=== PATIENT | male | born 1940 | race Caucasian/White ===

== ENCOUNTER 2020-05-31 23:42 | Inpatient (IN) | payer OTHER, SELFPAY ==
[2020-05-31 23:43] VITALS: BP 102/68; PULSE 114; RESP 16; TEMP 36.8; O2SAT 94
[2020-06-01] VITALS (30 sets, daily range): BP systolic 86–141; BP diastolic 61–84; PULSE 74–112; RESP 13–23; TEMP 36.7–37; O2SAT 97–100
[2020-06-01] MEDS: FAMOTIDINE 20 MG/50 ML BAG 100 MG IVPB (00:09)
[2020-06-01] MEDS: Ondansetron 4 MG/2 ML VIAL IVP (00:10)
--- NOTE | 2020-06-01 00:14 | ED.GENADUL_ITS ---
Discharge Plan Disposition Patient Disposition: [facility] INPATIENT Condition: Good Discharge Details Clinical Impression: Acute upper GI bleed Admit Date/Time: 06/01/20 02:24 Admit Provider: Aleksander Chan Attending Provider: Aleksander Chan Primary Care Provider: [facility] ED Provider: Karlos Hall Medical Decision Making 79-year-old male with a past medical history of lung cancer with metastases, receiving chemotherapy and radiation regularly through the [place], as well as having a history of A. fib, hypertension, prior lobectomies, aortic aneurysm, presents today for evaluation of vomiting blood. Patient states that for the last 2 to 3 months he has been vomiting very small amount of blood only in the morning, with no other issues however over the last day he has had a notable increase, today he has been spitting up notable amounts of large clots and bright red blood. Upon EMS arrival they noted a Saint with multiple clots in it. Aside from mild epigastric pain which the patient states is regular since his chemotherapy and radiation, he denies any chest pain, chest heaviness or tightness. He denies any shortness of breath. He is on 2 L of oxygen normally. Patient has no other complaints at this time. The patient's history shows that he was on Pradaxa, he denies being on it at this time. We are reaching out to the [facility] for record assessment. Physical exam demonstrates mild tachycardia, mild low blood pressure, will rehydrate, type and screen, start Protonix bolus and infusion, start famotidine, monitor closely and reassess. 12:23 AM I did contact family/Annie, discussed the case with her and it appears that he h as not been on Pradaxa for the last year. Blood pressure remains in the 90s, heart rate in the low 100s. 2:28 AM Laboratory work-up is returned, hemoglobin 12.8, which appears to be stable in comparison to his records from [facility]. Electrolytes stable, creatinine is higher than normal at 2.35, GFR is low. BUN 42, suspect there is a component of a reflection from an upper GI bleeding. I again discussed the scenario with the patient and he still does not feel that he had any significant shortness of breath, and he remains on his 1.5 to 2 L of home oxygen saturating at 99%. Symptoms appearing consistent with hemoptysis, and instead notably appear more consistent with upper GI etiology. The patient has had notable improvement of his symptoms while here, he is still spitting up small amounts of blood, more so minimal compared to before, no signs of respiratory distress whatsoever, vital signs have notably normalized, heart rate is now in the low 90s, blood pressure has improved to the low 110's. Patient feels much better. [facility] or [facility] available, they are not able to take him for transfer. I did contact the hospitalist and discussed the case with him/Dr. Chan, also discussed the case with Dr. Figueroa. At this time with the patient symptoms appear more consistent with an upper high GI bleed, in conjunction with his notable clinical stability at this time showing no signs of worsening, and instead showing notable improvement, does feel that the patient can be kept here this evening for GI scope in the morning with Dr. Figueroa. Dr. Chan will admit the patient. I did try to reach out to the patient's again Annie during the evening but because it is late she did not pick pulling machine operator. I have extensively reviewed the treatment plan with the patient. I have addressed all patient concerns at this time. I have also discussed the plan with the admitting physician and they agree with the current assessment and plan and have agreed to assume responsibility for the patient. All parties demonstrate verbal understanding and agreement with our assessment and plan at this time. FINDINGS: Tubes, catheters and devices: Central infusion device with reservoir overlying right chest and catheter tip in range of distal superior vena cava. Lungs: Unremarkable. No dense parenchymal consolidation. Pleural space: Right apical pleural thickening or loculated effusion has increased in size. No pneumothorax. Heart/Mediastinum: Unremarkable. No cardiomegaly. Vasculature: Abdominal aortic stent graft noted. Bones/joints: Degenerative changes. Prior right thoracotomy suspected. IMPRESSION: No acute findings. Thank you for allowing us to participate in the care of your patient. Dictated and Authenticated by: William De Oliveira DO [facility] General Date/Time Provider Initiated Documentation: 05/31/20 23:48 . HPI Narrative: 79-year-old male with a past medical history of lung cancer with metastases, [facility], as well as having a history of A. fib, hypertension, prior lobectomies, aortic aneurysm, presents today for evaluation of vomiting blood. Patient states that for the last 2 to 3 months he has been vomiting very small amount of blood only in the morning, with no other issues however over the last day he has had a notable increase, today he has been spitting up notable amounts of large clots and bright red blood. Upon EMS arrival they noted a Saint with multiple clots in it. Aside from mild epigastric pain which the patient states is regular since his chemotherapy and radiation, he denies any chest pain, chest heaviness or tightness. He denies any shortness of breath. He is on 2 L of oxygen normally. Patient has no other complaints at this time. The patient's history shows that he was on Pradaxa, he denies being on it at this time. We are reaching out to the [facility] for record assessment. Related Data Home Medications Medication Instructions Recorded Confirmed albuterol sulfate [Ventolin HFA] 2 puff PO PRN PRN 03/01/16 06/01/20 aspirin [Aspir-Low] 81 mg PO DAILY 03/01/16 03/27/16 metoprolol tartrate 25 mg PO BID 03/01/16 06/01/20 tiotropium bromide [Spiriva] 18 mcg PO DAILY 03/01/16 06/01/20 diltiazem HCl 240 mg PO DAILY 03/27/16 03/27/16 levothyroxine 25 mcg PO 06/01/20 Allergies Allergy/AdvReac Type Severity Reaction Status Date / Time adhesive tape AdvReac Topical Unverified 06/01/20 00:15 Irritation Vxkwmlx-Apf-Ise Reductase AdvReac Unverified 06/01/20 00:15 Inhibitor General Stated Complaint: GI Bleed DORI: 3 Review of Systems All systems reviewed & are unremarkable except as noted in HPI and below PFSH Social History Smoking/Tobacco Use Status: Former Tobacco Use Smoking risk assessment performed?: Yes Alcohol Intake: never Drug use: Never Do you feel safe at home: Yes Do you feel safe in your relationship?: Yes Exam Narrative Exam Narrative: 1.Const: Well-nourished, Well-developed, appearing stated age 2.Eyes: PERRL, no conjunctival injection, and symmetrical lids. 3.ENT: Atraumatic external nose and ears. Moist MM. Neck: Symmetric, trachea midline, No thyromegaly. Dried blood present in the mouth, no active bleeding 4.CVS: +S1/S2, No murmurs or gallops. Peripheral pulses 2+ and equal in all extremities. Brisk capillary refill in all extremities. 5.RESP: Unlabored respiratory effort. Decreased breath sounds, mild rhonchi scattered. 6.GI: Soft, Nontender/Nondistended except for small amount of epigastric tenderness which is minimal. No surgical abdomen whatsoever., No hepatosplenomegaly. No guarding or rebound. 7.MSK: Normocephalic/Atraumatic, Extremities w/o deformity or ttp No cyanosis or clubbing, Normal movement of all extremities 8.Skin: Warm, Dry. No rashes or lesions. 9.Neuro: advanced manager II-XII grossly intact. Sensation grossly intact, no focal neurologic deficits. 10.Psych: (AAO) x3. Appropriate mood and affect Course Vital Signs Vital signs: Vital Signs Temperature 36.8 C 05/31/20 23:43 Pulse 114 H 05/31/20 23:43 Respiratory Rate 16 05/31/20 23:43 Blood Pressure 102/68 05/31/20 23:43 Pulse Oximetry 94 05/31/20 23:43 Temperature 36.8 C 05/31/20 23:43 Temperature Source Temporal Artery Scan 05/31/20 23:43 Pulse 114 H 05/31/20 23:43 Respiratory Rate 16 05/31/20 23:43 Respiratory Effort Non-Labored 05/31/20 23:48 Blood Pressure 102/68 05/31/20 23:43 Blood Pressure Position Supine 05/31/20 23:43 Pulse Oximetry 94 05/31/20 23:43 Oxygen Delivery Method Room Air 05/31/20 23:43 Oxygen Flow Rate 0 05/31/20 23:43 Pain Level 0 05/31/20 23:43
[2020-06-01 00:17] LABS: Abs Immature Grans 0.04 10^3/uL (0.0-0.06); Absolute Basophil Count 0.03 10^3/uL (0.0-0.2); Absolute Eosinophil Count 0.13 10^3/uL (0.0-0.7); Absolute Lymphocyte Count 0.35 10^3/uL (1.2-3.4); Absolute Monocyte Count 0.73 10^3/uL (0.1-0.8); Absolute Neutrophil Count 7.77 10^3/uL (1.2-6.7); Basophils % 0.3; Eosinophils % 1.4; HCT 40.6 % (40.0-50.0); HGB 12.8 g/dL (13.5-17.5); Immature Grans % 0.4; Lymphocytes % 3.9; MCH 25.8 pg (27.0-33.0); MCHC 31.5 % (32.0-36.0); MCV 81.9 fL (80-95); MPV 10.2 fL (8.0-11.0); Monocytes % 8.1; Neutrophils % 85.9; Nucleated RBC 0 %; Platelet Count 160 10^3/uL (130-400); RBC 4.96 10^6/uL (4.36-5.78); RDW-SD 44.4 fL; WBC 9.05 10^3/uL (4.4-10.8)
[2020-06-01 00:31] LABS: ALT 67 U/L (16-63); AST 61 U/L (15-37); Albumin 3.2 g/dL (3.4-5.0); Alkaline Phosphatase 623 U/L (46-116); Anion Gap 11.3 mmol/L (3-11); BUN 42 mg/dL (7-18); Bilirubin, Total 0.5 mg/dL (0.2-1.0); CO2 24.7 mmol/L (21.0-32.0); CREATININE 2.35 mg/dL (0.70-1.30); Calcium 10.9 mg/dL (8.5-10.1); Chloride 101 mmol/L (98-107); Estimated GFR 26.89 (mL/min/1.73m2); Glucose 180 mg/dL (74-106); Magnesium 1.9 mg/dL (1.8-2.4); Potassium 4.5 mmol/L (3.5-5.1); Sodium 137 mmol/L (136-145); Total Protein 6.8 g/dL (6.4-8.2)
[2020-06-01] MEDS: Pantoprazole 40 MG VIAL 80 MG IVP (00:31)
[2020-06-01] MEDS: Normal Saline 1,000 ML 1000 ML IV (00:31)
[2020-06-01] MEDS: Sucralfate 1 GM TAB PO (00:32)
[2020-06-01] MEDS: PANTOPRAZOLE 80 MG in Normal Saline 100 ML 10 MG IV (00:40)
[2020-06-01 00:44] LABS: INR 1.2 (0.9-1.1); Prothrombin Time 12.4 sec (9.3-11.0)
--- NOTE | 2020-06-01 01:45 | DI.RAD_ITS ---
EXAM: XR PORTABLE CHEST AP CLINICAL HISTORY: vomiting blood, hx lung cancer TECHNIQUE: 2D digital imaging was performed. COMPARISON: CR PORTABLE CHEST ONE VIEW from 01/20/2016 FINDINGS: There is pleural scarring again seen in the right lung apex. Parenchymal scarring is present in the lungs. No focal consolidating infiltrates are seen. No effusions or pneumothoraces are present. He art size is within normal limits. There is atherosclerosis and tortuosity of the thoracic aorta. Th ere is an indwelling central venous catheter noted. The tip of the catheter is seen in the distal cui perior vena cava. No acute osseous abnormalities identified. The superior aspect of an abdominal ao rtic stent graft is noted. IMPRESSION: No acute pulmonary process. DATA REPOSITORY: RADIATION DOSE DELIVERED:
--- NOTE | 2020-06-01 02:08 | W.PM.HP.N ---
Date of service: 06/01/20 Time of Service: 02:08 Assessment and Plan Assessment and plan (1) Hemoptysis: Status: Acute Assessment and plan: Unclear source of bleeding, but sounds like upper airway or throat. Hemodynamics satisfactory and Hct normal. Will plan on EGD in AM, if no source identified may need bronchoscopy. Will have NPO. Reviewed ADs alongside ER physician, requests DNR. History of Present Illness History of Present Illness Chief Complaint: spitting up blood Narrative: 79 male with h/o metastatic lung CA, having chemo/XRT, reports several months of what he describes as spitting up of blood. He denies vomiting or cough, states the blood collects in his lower throat (here he points to a spot just below the jugular notch). Today he noted a dramatic increase in the volume of blood and this is what prompted his visit to ER. In ER findings of note for stable VS and Hct of 40. Case was reviewed [facility] and they declined transfer. He is admitted for further evaluation. ER discussed with surgery who advises they can perform EGD but not bronchoscopy. At time of my visit patient states there is now only scant and occasional blood, which is more or less his usual, and has no other complaints. Review of Systems All systems reviewed & are unremarkable except as noted in HPI and below PFSH Social History Smoking/Tobacco Use Status: Former Tobacco Use Smoking risk assessment performed?: Yes Alcohol Intake: never Drug use: Never Do you feel safe at home: Yes Do you feel safe in your relationship?: Yes Meds Home Medications and Allergies Home Medications Medication Instructions Recorded Confirmed Type albuterol sulfate [Ventolin HFA] 2 puff PO PRN PRN 03/01/16 06/01/20 History aspirin [Aspir-Low] 81 mg PO DAILY 03/01/16 03/27/16 History metoprolol tartrate 25 mg PO BID 03/01/16 06/01/20 History tiotropium bromide [Spiriva] 18 mcg PO DAILY 03/01/16 06/01/20 History diltiazem HCl 240 mg PO DAILY 03/27/16 03/27/16 History levothyroxine 25 mcg PO 06/01/20 History Allergies Allergy/AdvReac Type Severity Reaction Status Date / Time adhesive tape AdvReac Topical Unverified 06/01/20 00:15 Irritation Mbrflls-Dgt-Nzx Reductase AdvReac Unverified 06/01/20 00:15 Inhibitor Exam Narrative Exam Narrative: 141/82, 97, 36.8, 17, 99% 2L (baseline home O2). Appears chronically ill;HEENT no intraoral lesions or bleeding; neck supple; lungs coarse with scattered wheeze; heart distant RRR, abdomen soft and NT; extremities w/o edema; neuro Ox3, moves all 4s Results Labs Result diagrams: 06/01/20 00:00 06/01/20 00:00 Labs: Laboratory Results - last 24 hr 06/01/20 06/01/20 06/01/20 00:00 00:00 00:00 WBC 9.05 RBC 4.96 Hgb 12.8 L Hct 40.6 MCV 81.9 MCH 25.8 L MCHC 31.5 L RDW 15.0 H Plt Count 160 MPV 10.2 Immature Gran % 0.4 Neutrophils % 85.9 Lymphocytes % 3.9 Monocytes % 8.1 Eosinophils % 1.4 Basophils % 0.3 Nucleated RBC % 0 Absolute Neutrophils 7.77 H Absolute Lymphocytes 0.35 L Absolute Monocytes 0.73 Absolute Eosinophils 0.13 Absolute Basophils 0.03 PT 12.4 H INR 1.2 H Sodium 137 Potassium 4.5 Chloride 101 Carbon Dioxide 24.7 Anion Gap 11.3 H BUN 42 H Creatinine 2.35 H Estimated GFR/1.73 m2 26.89 Glucose 180 H Calcium 10.9 H Magnesium 1.9 Total Bilirubin 0.5 AST 61 H ALT 67 H Alkaline Phosphatase 623 H Total Protein 6.8 Albumin 3.2 L Patient ABO/Rh Antibody Screen 06/01/20 00:25 WBC RBC Hgb Hct MCV MCH MCHC RDW Plt Count MPV Immature Gran % Neutrophils % Lymphocytes % Monocytes % Eosinophils % Basophils % Nucleated RBC % Absolute Neutrophils Absolute Lymphocytes Absolute Monocytes Absolute Eosinophils Absolute Basophils PT INR Sodium Potassium Chloride Carbon Dioxide Anion Gap BUN Creatinine Estimated GFR/1.73 m2 Glucose Calcium Magnesium Total Bilirubin AST ALT Alkaline Phosphatase Total Protein Albumin Patient ABO/Rh O Positive Antibody Screen Negative Last Vital Signs Temp 36.8 C 05/31/20 23:43 Pulse 97 H 06/01/20 02:01 Resp 17 06/01/20 02:01 BP 141/82 H 06/01/20 02:01 Pulse Ox 99 06/01/20 02:01 COVID-19 Screening Have you, or household traveled for leisure in last 14 days?: No Had IN PERSON contact w/suspected or confirmed C-19 person: Yes
--- NOTE | 2020-06-01 02:12 | NUR.NOTE ---
Pt stated to Hospitalist that he does not take any medications. While speaking to nurse he stated that he has to take a medication in the morning 1hr before doing anything else. [facility] Lev[facility] 05/24/2020. Pt also stated that his friend Annie has his inhalers that he takes. Updated medication list to the best of ability. Will continue to monitor.
--- NOTE | 2020-06-01 02:39 | DI.VRAD_ITS ---
PROCEDURE INFORMATION: Exam: XR Chest, 1 View Exam date and time: 06/01/2020 2:14 AM Age: 79 years old Clinical indication: Other: Vomiting blood; Prior surgery; Surgery date: <1 month; Surgery type: Port placed; Patient HX: HX of lung cancer TECHNIQUE: Imaging protocol: XR of the chest Views: 1 view. COMPARISON: CR PORTABLE CHEST ONE VIEW 01/20/2016 9:56 AM FINDINGS: Tubes, catheters and devices: Central infusion device with reservoir overlying right chest and catheter tip in range of distal superior vena cava. Lungs: Unremarkable. No dense parenchymal consolidation. Pleural space: Right apical pleural thickening or loculated effusion has increased in size. No pneumothorax. Heart/Mediastinum: Unremarkable. No cardiomegaly. Vasculature: Abdominal aortic stent graft noted. Bones/joints: Degenerative changes. Prior right thoracotomy suspected. IMPRESSION: No acute findings. Dictated and Authenticated by: William De Oliveira MD. Ordering:WEI Everett MD
[2020-06-01] MEDS: Lactated Ringers 1,000 ML 100 ML IV (04:20)
[2020-06-01 08:52] LABS: HCT 33.8 % (40.0-50.0); HGB 10.8 g/dL (13.5-17.5); MCH 26.4 pg (27.0-33.0); MCV 82.6 fL (80-95); MPV 10.9 fL (8.0-11.0); Platelet Count 140 10^3/uL (130-400); RBC 4.09 10^6/uL (4.36-5.78); RDW 14.9 % (11.8-14.1); RDW-SD 44.8 fL; WBC 5.06 10^3/uL (4.4-10.8)
--- NOTE | 2020-06-01 09:19 | PDOC.CMIN ---
- If Service Date Differs Date of service: 06/01/20 Time of Service: 09:19
--- NOTE | 2020-06-01 10:38 | PDOC.CMPRO ---
- If Service Date Differs Date of service: 06/01/20 Time of Service: 10:39 Care Management Progress Note S/O: Brooks will be transferred once a bed is identified and he is accepted. [facility] first choice is the [facility] CM has contacted the transfer center and requested review, they will contact hospitalist directly to review. CM will continue to support and assist in discharge coordination as needed. Brooks is asking if his family can bring in his belongings and what time he will be transferred, He wanted to know if his family could transport him CM explained that he will need acute transfer and it will need to be by ambulance. Brooks agrees and he will have his family bring his wallet and belongings to the volunteer desk. CM notified the RN glue specialty supervisor and the medical surgical community development officer of the drop off. A:Brooks is a 79 year old patient admitted for bleeding unsure of the source lung vs GI. Brooks is undergoing treatment for lung cancer, he is a [facility] patient. Brooks does have Medicare and [facility] coverage. Brooks is currently admitted observation for stabilization and awaiting transfer. P:Brooks will be transferred for further treatment including possible broncoscopy and EGD. JOSE has contacted the transfer center at the [facility] patients first choice and has been accepted. Patient will be transported via ambulance coordinated by RN glue specialty supervisor.
--- NOTE | 2020-06-01 10:45 | DI.CT_ITS ---
EXAM: CT CHEST WO CLINICAL HISTORY: hemoptysis, h/o lung ca on chemo/xrt. TECHNIQUE: Imaging protocol: Axial computed tomography images were obtained and coronal and sagittal reformatted images were created and reviewed. COMPARISON: CR,XR XR PORTABLE CHEST AP from 06/01/2020 FINDINGS: Tracheobronchial tree: Patent where visualized. Mediastinum and Bertha: No dominant adenopathy or fluid collection. Pulmonary parenchyma: The patient appears to be status post right lobectomy. There is again seen ple ural and parenchymal scarring in the right lung apex with bronchiectatic changes present. Moderately severe centrilobular emphysematous changes are present in the lungs. Paramediastinal scarring is se en on the right with associated traction bronchiectasis. A small ground-glass infiltrate is seen in the right lung base medially. No focal consolidating infiltrate is seen there is a 0.6 cm pulmonary nodule in the right lower lobe. (Series 4, image 201). There is a calcified granuloma in the right lower lobe. Ground-glass opacities are also seen in the left lower lobe. Pleura: No effusion or pneumothorax. Heart: The heart is not dilated. Moderate coronary artery calcification. No pericardial effusion. Aorta: There is a descending thoracic aortic aneurysm measuring 6.2 x 6.2 cm in diameter. There is t ortuosity of the thoracic aorta. Aneurysmal dilatation of the ascending thoracic aorta is also noted measuring 4.6 x 4.6 cm. There is a question of a superior mediastinal mass superior and medial to t he aortic arch measuring 2.6 x 2.8 cm. There is a mass effect on the adjacent trachea which is devia hailey to the right. While this may represent a soft tissue mass, there is dilatation of the great vess els and this may represent an aneurysm of the proximal great vessels. This area is limited due to th e lack of IV contrast material. Upper abdomen: Bilateral renal cysts are present. The largest is incompletely imaged in the right l ower lobe measures at least 10.2 cm. Lymph nodes: Within normal limits. Bones:Degenerative changes are present in the spine. Tubes, Catheters, and Lines: There is a indwelling central venous catheter. The tip of the catheter is in good position in the superior vena cava. Soft tissues: Unremarkable. IMPRESSION: 1. Prior right lobectomy with pleural and parenchymal scarring in the right lung apex with associated bronchiectasis. 2. Ascending and descending thoracic aortic aneurysms. They measure 4.6 x 4.6 cm and 6.2 x 6.2 cm re spectively. 3. Question of a superior mediastinal mass causing an affect on the trachea. An aneurysm of the grea t vessels cannot be excluded. Examination is limited due to lack of IV contrast. 4. Ground-glass infiltrates in the lungs as described. This is nonspecific. Infectious or inflammat ory pneumonitis cannot be excluded. 5. 0.6 cm right lower lobe pulmonary nodule. RADIATION DOSE DELIVERED: 365.36mGy.cm Total DLP 365.36mGy.cm Total DLP DATA REPOSITORY: All CT scans at this facility are submitted to the National Radiology Data Registry (NRDR) Dose Index Registry (DIR) with the [employer] (A[employer]). RADIATION OPTIMIZATION: All CT scans at this facility use at least one of these dose optimization te chniques: automated exposure control; mA and/or kV adjustment per patient size (includes targeted exa ms where dose is matched to clinical indication); or iterative reconstruction.
[2020-06-01] MEDS: Pantoprazole 40 MG VIAL IVP (11:30)
[2020-06-01] MEDS: Normal Saline 50 ML 200 ML (11:30)
--- NOTE | 2020-06-01 11:47 | DSE_ITS ---
Date of service: 06/01/20 Time of Service: 11:47 DS: Diagnosis Discharge Diagnosis (1) Massive hemoptysis: Status: Acute (2) Anemia due to acute blood loss: Status: Acute (3) Acute kidney injury superimposed on chronic kidney disease: Status: Acute (4) Metastatic lung cancer (metastasis from lung to other site): Status: Chronic (5) Hypercalcemia: Status: Acute Discharge Plan Disposition Patient Disposition: [facility] Condition: Good Discharge Details Reason For Visit: HEMOPTYSIS Admit Date/Time: 06/01/20 02:24 Admit Provider: Aleksander Chan Attending Provider: Aleksander Chan Primary Care Provider: [facility],[place] Hospital Course Hospital Course: Mr Kaba is a 79 year old male with PMHx of metastatic lung cancer, on chemo and radiation, patient of the [place], who was observed on [facility] hospitalist service after presenting to our ED after an episode of massive hemoptysis. The patient's hemoptysis has not recurred here. He was monitored on a medical surgical floor, where his SBP's stayed in low 100s - high 90's, asymptomatic. He was hydrated with IVF. He was evaluated by general surgery who felt that the patient would not benefit from upper endoscopy as the source of his bleeding was pulmonary and not GI. He was initially denied, but eventually accepted in transfer to the [facility] in [place] by Dr Brizuela for an evaluation by a silo worker for a bronchoscopy, which we do not have available at [facility]. The patient is agreeable to transfer and is hemodynamically stable for transfer. Care for patient as well as completion of his discharge summary took 45 minutes on the day of transfer. Home Meds and New Rx's Prescriptions: No Action aspirin [Aspir-Low] 81 MG tablet,delayed release (DR/EC) 81 mg PO DAILY RF: 0 albuterol sulfate [Ventolin HFA] 60 PUFF HFA aerosol inhaler 2 puff PO PRN PRNRF: 0 Spiriva with HandiHaler 18 MCG capsule, w/inhalation device 18 mcg PO DAILY RF: 0 diltiazem HCl 240 MG capsule,extended release 24hr 240 mg PO DAILY RF: 0 levothyroxine 25 mcg Capsule 25 mcg PO RF: 0 Discharge Instructions Activity:: OOB to chair Equipment/Supplies:: No Equipment Needed Diet:: NPO Discharge Orders Discharge Orders: Discharge Order (Routine); Ordered 06/01/20 Ordered By: Delaney Branch DS: Summary Status at Discharge Functional status at discharge: independent ambulation Overall status at discharge: patient is not back to baseline Mental Status: mental status grossly normal Speech and Movement: speech and movement normal Mood: congruent mood Affect: normal affect Exam Narrative Exam Narrative: General: Very pleasant elderly male, A&Ox3, talking in full sentences, not in distress, on room air HEENT: EOMI, MMM Heart: RRR, no m/r/g Lungs: Coarse breath sounds B Abdomen: soft, nontender, nondistended Extremities: no edema BLEs Psych Mental Status: mental status grossly normal Speech and Movement: speech and movement normal Mood: congruent mood Affect: normal affect DS: Data Vitals/I&O Vitals and I&O: Vital Signs Temperature 37 C 06/01/20 07:46 Temperature Source Tympanic 06/01/20 07:46 Pulse 74 06/01/20 07:46 Pulse Rhythm Regular 06/01/20 03:19 Pulse 94 H 06/01/20 02:20 Respiratory Rate 16 06/01/20 07:46 Respiratory Effort Non-Labored 06/01/20 03:19 Respiratory Depth Normal 06/01/20 03:19 Respiratory Pattern Normal 06/01/20 03:19 Blood Pressure 99/61 L 06/01/20 07:46 Blood Pressure Mean 91 06/01/20 02:16 Blood Pressure Position Supine 05/31/20 23:43 Pulse Oximetry 97 06/01/20 09:35 Oxygen Delivery Method Room Air 06/01/20 09:35 Oxygen Flow Rate 0 06/01/20 09:35 Pain Level 0 06/01/20 07:46 Intake & Output 05/31/20 05/31/20 06/01/20 11:59 23:59 11:59 Intake Total 1050 / 1050 Output Total 400 / 400 Balance 650 / 650 Weight 62.5 kg 58.695 kg Intake: IV 1050 / 1050 Output: Urine 400 / 400 Other: Urine Color Yellow Urine Appearance Clear Emesis Description Bright Red Blood Voiding Methods Toilet Data Completed and Pending Completed studies during hospitalization [Text1]: CXR: No acute pulmonary process. CT chest w/o contrast: 1. Prior right lobectomy with pleural and parenchymal scarring in the right lung apex with associated bronchiectasis. 2. Ascending and descending thoracic aortic aneurysms. They measure 4.6 x 4.6 cm and 6.2 x 6.2 cm respectively. 3. Question of a superior mediastinal mass causing an affect on the trachea. An aneurysm of the great vessels cannot be excluded. Examination is limited due to lack of IV contrast. 4. Ground-glass infiltrates in the lungs as described. This is nonspecific. Infectious or inflammatory pneumonitis cannot be excluded. 5. 0.6 cm right lower lobe pulmonary nodule. Labs on day of discharge: Labs from last 24 hours 06/01/20 06/01/20 06/01/20 07:50 02:35 00:25 WBC 5.06 D RBC 4.09 L Hgb 10.8 L Hct 33.8 L MCV 82.6 MCH 26.4 L MCHC 32.0 RDW 14.9 H Plt Count 140 MPV 10.9 Immature Gran % Neutrophils % Lymphocytes % Monocytes % Eosinophils % Basophils % Nucleated RBC % Absolute Neutrophils Absolute Lymphocytes Absolute Monocytes Absolute Eosinophils Absolute Basophils PT INR Sodium Potassium Chloride Carbon Dioxide Anion Gap BUN Creatinine Estimated GFR/1.73 m2 Glucose Calcium Magnesium Total Bilirubin AST ALT Alkaline Phosphatase Total Protein Albumin SARS-CoV-2 (PCR) Pending Nasopharyn COVID-19 PCR Pending Ref Test Perform Site Pending Patient ABO/Rh O Positive Antibody Screen Negative 06/01/20 06/01/20 06/01/20 00:00 00:00 00:00 WBC 9.05 RBC 4.96 Hgb 12.8 L Hct 40.6 MCV 81.9 MCH 25.8 L MCHC 31.5 L RDW 15.0 H Plt Count 160 MPV 10.2 Immature Gran % 0.4 Neutrophils % 85.9 Lymphocytes % 3.9 Monocytes % 8.1 Eosinophils % 1.4 Basophils % 0.3 Nucleated RBC % 0 Absolute Neutrophils 7.77 H Absolute Lymphocytes 0.35 L Absolute Monocytes 0.73 Absolute Eosinophils 0.13 Absolute Basophils 0.03 PT 12.4 H INR 1.2 H Sodium 137 Potassium 4.5 Chloride 101 Carbon Dioxide 24.7 Anion Gap 11.3 H BUN 42 H Creatinine 2.35 H Estimated GFR/1.73 m2 26.89 Glucose 180 H Calcium 10.9 H Magnesium 1.9 Total Bilirubin 0.5 AST 61 H ALT 67 H Alkaline Phosphatase 623 H Total Protein 6.8 Albumin 3.2 L SARS-CoV-2 (PCR) Nasopharyn COVID-19 PCR Ref Test Perform Site Patient ABO/Rh Antibody Screen [facility] Medical History (Updated 06/01/20 @ 11:59 by Delaney Branch MD) Bronchiectasis CKD (chronic kidney disease) COPD (chronic obstructive pulmonary disease) Hypercalcemia Hypertension Hypothyroidism Metastatic lung cancer (metastasis from lung to other site) Thoracic aortic aneurysm ascending and descending Surgical History (Updated 06/01/20 @ 11:59 by Delaney Branch MD) S/P lobectomy of lung Social History Smoking/Tobacco Use Status: Former Tobacco Use Smoking risk assessment performed?: Yes Alcohol Intake: never Drug use: Never Do you feel safe at home: Yes Do you feel safe in your relationship?: Yes
--- NOTE | 2020-06-01 12:33 | W.SURGCON ---
Date of service: 06/01/20 Time of Service: 10:30 Assessment and Plan Assessment and plan (1) Hemoptysis: Status: Acute Assessment and plan: Mr. Starkey is a pleasant 79-year-old gentleman who was admitted for observation last night after having an episode of massive hemoptysis at home. The patient states that he coughs up blood normally at nighttime. Last night after coughing up a little bit of blood he started having massive bleeding and felt like he was drowning in his own blood. He did not feel sick to his stomach he did not vomit blood. There was talk about EGD today to look at the back of his throat for a source of bleeding. With his past medical history which is significant for lung cancer with metastases and his history of hemoptysis on a daily basis for the last few months I do not feel that the patient really needs an EGD. He would benefit most from a bronchoscopy. If bronchoscopy is negative then maybe he should have an EGD. Unfortunately we do not have a bronchoscope here and we also do not have any way to treat any acute active bleeding that may be found. Recommend transfer to the OR or [facility] for electrical instrument repairer evaluation and possible bronchoscopy. This was discussed with the hospitalist Dr. Branch. History of Present Illness History of Present Illness Chief Complaint: Hemoptysis Narrative: Mr. Kaba is a 79-year-old gentleman with a past medical history significant for bladder cancer for which he is in remission as well as lung cancer. He tells me that he has had bilateral partial lung resections. His cancer is at this point metastatic. He tells me that for months he has been coughing up blood. Yesterday evening he started coughing up blood just like he normally does at nighttime and then all of a sudden he started to cough up a lot of blood. I felt like I was drowning in my own blood. He did not have any abdominal pain and did not vomit any blood. ER discussed the case with Dr. Figueroa last night for possible EGD today to look at the back of his throat for a source of bleeding. He has not had any more hemoptysis since admission. His vitals are stable. His hemoglobin dropped from 12.8 last night to 10.8. The patient [facility] gets [facility]. Consults Consult date: 05/31/20 Requesting physician: Aleksander Chan Review of Systems Constitutional Constitutional: Denies fever(s), Denies headache(s), Denies weakness and Denies weight loss Eyes Eyes: Denies change in vision ENT Ears, Nose, Mouth, and Throat: Denies change in voice, Denies dysphagia and Denies headache(s) Cardiovascular Cardiovascular: Denies chest pain, Denies chest pain at rest, Denies irregular heart rhythm, Denies palpitations and Denies dyspnea Respiratory Respiratory: Reports hemoptysis and Denies dyspnea Gastrointestinal Gastrointestinal: Reports as per HPI, Denies melena, Denies hematochezia, Denies change in stool character, Denies coffee ground emesis, Denies constipation, Denies dysphagia, Denies dyspepsia and Denies heartburn Genitourinary Genitourinary: Reports system reviewed and no additional complaints, except as documented Neurologic Neurologic: Denies headache(s) and Denies weakness Endocrine Endocrine: Denies palpitations PFS Medical History (Updated 06/01/20 @ 11:59 by Delaney Branch MD) Bronchiectasis CKD (chronic kidney disease) COPD (chronic obstructive pulmonary disease) Hypercalcemia Hypertension Hypothyroidism Metastatic lung cancer (metastasis from lung to other site) Thoracic aortic aneurysm ascending and descending Surgical History (Updated 06/01/20 @ 11:59 by Delaney Branch MD) S/P lobectomy of lung Social History Smoking/Tobacco Use Status: Former Tobacco Use Smoking risk assessment performed?: Yes Alcohol Intake: never Drug use: Never Do you feel safe at home: Yes Do you feel safe in your relationship?: Yes Exam Const General: cooperative, comfortable and no acute distress Orientation: alert and oriented x3 HENMT Head: normocephalic and atraumatic Resp Effort & Inspection: normal respiratory effort Auscultation: other (coarse breath sounds bilaterally) Cardio Rate: regular rate Rhythm: regular rhythm Heart Sounds: no gallops, no murmurs and no rubs GI Inspection: normal to inspection Palpation: soft, no hepatosplenomegaly and nontender Auscultation: normal bowel sounds Results Last Vital Signs Temp 98.6 F 06/01/20 07:46 Pulse 74 06/01/20 07:46 Resp 16 06/01/20 07:46 BP 99/61 L 06/01/20 07:46 Pulse Ox 97 06/01/20 09:35 Labs Result diagrams: 06/01/20 07:50 06/01/20 00:00 Labs: Laboratory Results - last 24 hr 06/01/20 06/01/20 06/01/20 00:00 00:00 00:00 WBC 9.05 RBC 4.96 Hgb 12.8 L Hct 40.6 MCV 81.9 MCH 25.8 L MCHC 31.5 L RDW 15.0 H Plt Count 160 MPV 10.2 Immature Gran % 0.4 Neutrophils % 85.9 Lymphocytes % 3.9 Monocytes % 8.1 Eosinophils % 1.4 Basophils % 0.3 Nucleated RBC % 0 Absolute Neutrophils 7.77 H Absolute Lymphocytes 0.35 L Absolute Monocytes 0.73 Absolute Eosinophils 0.13 Absolute Basophils 0.03 PT 12.4 H INR 1.2 H Sodium 137 Potassium 4.5 Chloride 101 Carbon Dioxide 24.7 Anion Gap 11.3 H BUN 42 H Creatinine 2.35 H Estimated GFR/1.73 m2 26.89 Glucose 180 H Calcium 10.9 H Magnesium 1.9 Total Bilirubin 0.5 AST 61 H ALT 67 H Alkaline Phosphatase 623 H Total Protein 6.8 Albumin 3.2 L SARS-CoV-2 (PCR) Nasopharyn COVID-19 PCR Ref Test Perform Site Patient ABO/Rh Antibody Screen 06/01/20 06/01/20 06/01/20 00:25 02:35 07:50 WBC 5.06 D RBC 4.09 L Hgb 10.8 L Hct 33.8 L MCV 82.6 MCH 26.4 L MCHC 32.0 RDW 14.9 H Plt Count 140 MPV 10.9 Immature Gran % Neutrophils % Lymphocytes % Monocytes % Eosinophils % Basophils % Nucleated RBC % Absolute Neutrophils Absolute Lymphocytes Absolute Monocytes Absolute Eosinophils Absolute Basophils PT INR Sodium Potassium Chloride Carbon Dioxide Anion Gap BUN Creatinine Estimated GFR/1.73 m2 Glucose Calcium Magnesium Total Bilirubin AST ALT Alkaline Phosphatase Total Protein Albumin SARS-CoV-2 (PCR) Cancelled Nasopharyn COVID-19 PCR Cancelled Ref Test Perform Site Cancelled Patient ABO/Rh O Positive Antibody Screen Negative
[2020-06-01 12:42] LABS: COVID-19 PCR Negative (Negative); Influenza A PCR Negative (Negative); Influenza B PCR Negative (Negative); RSV PCR Negative (Negative)
[2020-06-01 12:52] LABS: Source Nasopharynx
--- NOTE | 2020-06-01 15:47 | CHAPLAIN ---
Brooks was in bed when I visited this morning. He was waiting to be transferred. He is being treated for lung cancer. He told me right away that he does not like organized religions and he follows Antoinette, a elder. There is only one creator, I can talk directly to him, and I do Brooks said. Many people in his family are [place] [employer] th[employer]ers he said, and use the Bible to defend aggressions. Brooks said he dropped out of school after seventh grade, and had career that took him around the [place]. (Somehow connected to [employer] booths) He has a son who retired from the recently and Brooks said he is in touch with his son, who know drives a truck. Brooks said he couldn't afford to live in [place], but then moved here, was diagnosed with cancer, and now can't leave. He is very matter of fact about his diagnosis, and continued to discuss politics and pentecostalism and go back to saying he only needs to believe in the Creator.
== END 2020-06-01 14:00 | disposition short-term general hospital (02) | DRG 181 ==
LOC: ER 06-01 02:41 → MS 06-01 02:59
PROVIDERS: Admitting Provider General Practice; Emergency Provider Student in an Organized Health Care Education/Training Program; Visit Provider General Practice
DX: C34.31 Malignant neoplasm of lower lobe, right bronchus or lung (principal); C79.9 Secondary malignant neoplasm of unspecified site; R04.2 Hemoptysis; D62 Acute posthemorrhagic anemia; N17.9 Acute kidney failure, unspecified; Z87.891 Personal history of nicotine dependence; E83.52 Hypercalcemia
CPT/HCPCS: 36591; 71250; 80053; 85027; 86850; 86900; 86901; 96361; 96365; 96366; 96367; 96375; 99217; 99222; 99252; 99285; U0003; 71045; 83735; 85025; 85610; 99235; G0378; J2405